=== PATIENT | female | born 1960 | race Caucasian/White ===

== ENCOUNTER 2018-06-02 06:24 | Day surgery (SDC) | payer OTHER ==
[2018-06-01 15:20] VITALS: BMI 28.1
[2018-06-02] MEDS ORDERED: DEXAMETHASONE SOD PHOSPHATE/PF 10 MG/ML SDV ONE (07:12)
[2018-06-02] MEDS ORDERED: ROPIVACAINE HCL 0.5% 30ML VIAL ONE (07:12)
[2018-06-02] MEDS ORDERED: MIDAZOLAM HCL 2 MG/2 ML SINGLE DOSE VIAL ONE ×3 (07:13→08:01)
--- NOTE | 2018-06-02 07:58 | HP ---
Satellite [facility] - Chief Complaint Chief Complaint: right shoulder pain - Past Medical History Allergies/Adverse Reactions: Allergies Allergy/AdvReac Type Severity Reaction Status Date / Time No Known Allergies Allergy Verified 06/01/18 15:20 - Current Medications Current Medications: Home Medications Medication Instructions Recorded Oxycodone HCl/Acetaminophen 1 - 2 tab PO Q6H #30 tab MDD 6 06/02/18 [Percocet 5-325 mg Tablet] Satellite Physical Exam - Physical Examination Vital Signs: Vital Signs Period Temp Pulse Resp BP Sys/Baez Pulse Ox Last 24 Hr 98 F 66 18 130/71 100 General Appearance: Well Nourished, Well Developed, Alert & Oriented x3 ENT: Clear Lung: Normal air movement Heart: Regular rate & rhythm Extremities: Other (right shoulder- + ttp, decr rom, + empty can, +neer, + wilkins, nvi MRI + rct) Neurological: Intact, Alert, Oriented Satellite Impression/Plan - Impression/Plan Impression: right shoulder rct Operative Procedure: right shoulder arthroscopy with RCLANDON Obrien Date to be Performed: 06/02/18
[2018-06-02] MEDS ORDERED: fentaNYL CITRATE 250 MCG/5 ML VIAL ONE (08:01)
[2018-06-02] MEDS ORDERED: ceFAZolin SODIUM 1 GM VIAL IVPB ONE (08:30)
[2018-06-02] MEDS ORDERED: ONDANSETRON 4 MG/2 ML VIAL IVPUSH PRN (08:50)
[2018-06-02] MEDS ORDERED: oxyCODONE HCL 5 MG TABLET PO PRN (08:50)
[2018-06-02] MEDS ORDERED: LACTATED RINGERS SOLUTION 1,000 ML IV SCH (09:00)
[2018-06-02] MEDS ORDERED: GLYCOPYRROLATE 0.2 MG/1 ML VIAL ONE (09:12)
[2018-06-02] MEDS ORDERED: NEOSTIGMINE METHYLSULFATE 0.5 MG/ML - 10 ML MDV ONE (09:12)
--- NOTE | 2018-06-02 09:19 | OP ---
Operative Note - Note: Operative Date: 06/02/18 ([facility]) Pre-Operative Diagnosis: right shoulder rct Operation: right shoulder arthroscopy with RCR, SAD Post-Operative Diagnosis: Same as Pre-op Surgeon: Rafael Lemus Landscape Artist: Johnnie Esposito Anesthesiologist/CHAIN MENDER: Isela Montoya Anesthesia: General, Local Specimens Removed: shavings Estimated Blood Loss (mls): 5 Operative Report Dictated: Yes
[2018-06-02] MEDS ORDERED: oxyCODONE HCL 5 MG TABLET ONE (09:49)
[2018-06-02] MEDS ORDERED: ONDANSETRON 4 MG/2 ML VIAL ONE (09:49)
[2018-06-02 13:18] VITALS: BP 133/78; PULSE 60; TEMP 97.8
--- NOTE | 2018-06-03 09:47 | OP ---
DATE OF OPERATION: 06/02/2018 PREOPERATIVE DIAGNOSIS: Right rotator cuff tear. POSTOPERATIVE DIAGNOSIS: Right rotator cuff tear and impingement. PROCEDURE: Arthroscopy, right shoulder, subacromial decompression, and a right rotator cuff repair. SURGICAL ATTENDING: Rafael Lemus MD INTERIOR DESIGN TEACHER: FRANCY Sahni ANESTHESIA: Regional and general. CLOSURE: Two SwiveLock anchors and a SutureTape for rotator cuff and 3-0 nylon for skin. ESTIMATED BLOOD LOSS: Negligible. COMPLICATIONS: None. CONDITION: To recovery room in stable condition. DESCRIPTION OF OPERATIVE PROCEDURE: Patient was taken to the operating room on June 02, 2018. Regional and general anesthesia were administered by the anesthesiologist. IV Kefzol was brought in prophylactically prior to the case. Right shoulder was prepped and draped in the usual sterile fashion with the patient in the beach-chair position. A diagnostic arthroscopy of the glenohumeral joint was performed. A posterior portal was made 2 fingerbreadths below the acromion with a 15 blade followed by a blunt trocar. A circumferential examination of the glenohumeral joint revealed the following: Intact glenoid and humeral head, articular cartilage, intact labrum circumferentially, intact biceps and biceps anchor, intact subscapularis to its insertion, no loose bodies in the axillary pouch. Looking superiorly, the rotator cuff was found to have a crescent tear. The rest of the rotator cuff was found to be intact. Fluid was drained from the shoulder and trocar was removed. The posterior trocar was redirected in the subacromial space. An accessory lateral portal was made with a 15 blade and blunt trocar. A bursectomy was performed using the shaver and the ArthroCare device. The coracoacromial ligament was identified and detached off the anterior acromion. It was visualized to drop inferiorly and was further debrided. An anterior acromioplasty was then performed using an acromionizer linda and debrided back to the appropriate level gaining sufficient height for the rotator cuff . Soft tissue then around the greater tuberosity was removed using the shaver exposing the crescent rotator cuff tear. The bed was cleaned of fibrous tissue exposing bleeding surface for re-implantation of the rotator cuff. Two FiberTape sutures were placed in horizontal mattress formation using a Numedeon self-retrieving suture passer. Each one of these sutures were placed through a SwiveLock anchor, which was malletted and screwed into the more lateral position on the greater tuberosity achieving excellent fixation. Direct visualization revealed that the rotator cuff had been pulsed back to its anatomical location, the greater tuberosity with no undue tension on the repair. The sutures were cut flush with the bone. Range of motion revealed excellent stability, the repair with excellent clearance with the acromion above. The shoulder was irrigated and drained of its fluid. The portals were closed with 3-0 nylon. Sterile pressure dressing followed by shoulder immobilizer was applied. Patient was awakened from anesthesia and transferred to the recovery room in stable condition. No complications. Estimated blood loss negligible. Larisa [id number]
--- NOTE | 2018-06-05 17:03 | PATH ---
Surgical Pathology Report Patient Name: CARLOS ECHEVERRIA [facility]. Rec. #: [id number] /Age/Gender: 1960 (Age: 58) / F Account: [id number] Location: [facility] SURGICAL Taken: 06/02/2018 Received: 06/02/2018 Reported: 06/05/2018 Physicians: Rafael Lemus M.D. Specimen(s) Received RIGHT SHOULDER SHAVINGS Clinical History Right shoulder tear Final Diagnosis RIGHT SHOULDER SHAVINGS: FRAGMENTS OF FIBROCARTILAGINOUS TISSUE AND SYNOVIAL TISSUE WITH DEGENERATIVE CHANGES. UNREMARKABLE SKELETAL MUSCLE FRAGMENTS. Electronically Signed Ross Farrar M.D. Gross Description Received in formalin, labeled "right shoulder shavings," is a 4.0 x 3.2 x 0.4 cm. aggregate of rodriguez-yellow soft tissue fragments. A veterans employment representative portion is submitted in one cassette. /06/02/201806/02/2018
== END 2018-06-02 12:00 | disposition home or self-care (01) ==
LOC: JASU-SURG 06:24
PROVIDERS: ATTEND Orthopaedic Surgery
PROC: 0RNJ4ZZ Release Right Shoulder Joint, Percutaneous Endoscopic Approach (ICD-10-PCS; principal; 2018-06-02 08:00)
PROC: 0LQ14ZZ Repair Right Shoulder Tendon, Percutaneous Endoscopic Approach (ICD-10-PCS; 2018-06-02 08:00)
DX: M75.101 Unspecified rotator cuff tear or rupture of right shoulder, not specified as traumatic (principal); M75.41 Impingement syndrome of right shoulder
CPT/HCPCS: 88304-TC; 94760

== ENCOUNTER 2018-11-01 08:33 | Day surgery (SDC) | payer OTHER ==
[2018-10-31 12:14] VITALS: BMI 31.3
--- NOTE | 2018-11-01 08:28 | HP ---
Satellite [facility] - Chief Complaint Chief Complaint: right hand pain, weakness, numbness, tingling History of Present Illness: right CTS History Source: Patient Limitations to Obtaining History: No Limitations - Past Medical History Allergies/Adverse Reactions: Allergies Allergy/AdvReac Type Severity Reaction Status Date / Time No Known Allergies Allergy Verified 06/01/18 15:20 - Current Medications Current Medications: Home Medications Medication Instructions Recorded NK [No Known Home Medication] 10/31/18 Satellite Physical Exam - Physical Examination General Appearance: Well Nourished ENT: Clear Lung: Clear to auscultation Heart: Regular rate & rhythm Breasts: Soft Abdomen: Soft Extremities: No edema Satellite Impression/Plan - Impression/Plan Impression: right CTS Operative Procedure: right CTR Date to be Performed: 11/01/18
[2018-11-01] MEDS ORDERED: MIDAZOLAM HCL 2 MG/2 ML SINGLE DOSE VIAL ONE (09:34)
[2018-11-01] MEDS ORDERED: BUPIVACAINE HCL/PF 0.5% (5MG/ML) 10 ML VIAL ONE (09:52)
[2018-11-01] MEDS ORDERED: LIDOCAINE HCL 1%, 10 MG/ML (20ML VIAL) ONE (09:52)
[2018-11-01] MEDS ORDERED: oxyCODONE HCL 5 MG TABLET PO PRN (10:04)
[2018-11-01] MEDS ORDERED: ONDANSETRON 4 MG/2 ML VIAL IVPUSH PRN (10:04)
[2018-11-01] MEDS ORDERED: ceFAZolin SODIUM 1 GM VIAL ONE (10:08)
[2018-11-01] MEDS ORDERED: ceFAZolin SODIUM 1 GM VIAL IVPB ONE (10:10)
[2018-11-01] MEDS ORDERED: LACTATED RINGERS SOLUTION 1,000 ML IV SCH (10:15)
[2018-11-01] MEDS ORDERED: LIDOCAINE HCL 1%, 10 MG/ML (20ML VIAL) PNB ONE (10:25)
[2018-11-01] MEDS ORDERED: PROPOFOL 20 ML ONE (10:27)
--- NOTE | 2018-11-01 10:47 | OP ---
Operative Note - Note: Operative Date: 11/01/18 Pre-Operative Diagnosis: right CTS Operation: right CTR, tenosynovectomy Post-Operative Diagnosis: Same as Pre-op Surgeon: Domenico Porter Anesthesiologist/LINEN ATTENDANT: Jason Moore Anesthesia: Local, MAC Specimens Removed: tenosynovium Estimated Blood Loss (mls): 0 Drains, Volume Out (mls): 0 Blood Volume Replaced (mls): 0 Fluid Volume Replaced (mls): 500 Operative Report Dictated: Yes
[2018-11-01 12:49] VITALS: BP 147/78; PULSE 84; TEMP 97.9
--- NOTE | 2018-11-02 02:37 | SPEC ---
DATE OF OPERATION: 11/01/2018 PREOPERATIVE DIAGNOSIS: Right carpal tunnel syndrome and tenosynovitis. POSTOPERATIVE DIAGNOSIS: Right carpal tunnel syndrome and tenosynovitis. PROCEDURE: Right carpal tunnel release and tenosynovectomy. SURGEON: Domenico Porter MD ASSISTANTS: None. ANESTHESIA: MAC, local injection with 12 mL of 0.5% Marcaine and 1% Lidocaine mix. ANESTHESIOLOGIST: Jason Moore CRNA DRAINS: None. COMPLICATIONS: None. SPECIMENS: Tenosynovium, right wrist. BLOOD LOSS: None. BLOOD GIVEN: None. FLUID REPLACEMENT: 500 mL of Plasmalyte. INDICATIONS: The patient is a 58-year-old female with preoperative diagnosis of severe right carpal tunnel syndrome. After understanding the potential risks, complications, alternatives and benefits of surgery versus nonsurgical treatment, the patient elected to undergo this procedure. DESCRIPTION OF PROCEDURE: The patient was brought to the operating room, peripheral IV placed and intravenous sedation was given. Two grams of intravenous Ancef was given. MAC anesthesia was induced. A tourniquet was applied to the right upper arm and the right upper extremity was prepped and draped in sterile fashion. The entire case was done under 3.8 loupe magnification. A marking pen was utilized to peter out a longitudinal incision in an already existing skin crease. Twenty mL of 0.5% Marcaine mixed with 1% Lidocaine was injected in and around the surgical incision. The right upper extremity was elevated, exsanguinated with an Esmarch bandage and the tourniquet inflated to 250 mmHg. A No. 15 scalpel blade was utilized to cut down through the skin. Subcutaneous hemostasis was achieved with the bipolar cautery. Dissection was done through the superficial palmar fascia. Self-retaining retractors were placed into the wound. Under direct visualization, the transverse carpal ligament was transected with a No. 15 scalpel blade, exposing the median nerve and the contents of the carpal tunnel. The distal and proximal extents of the release were completed with a Littler scissor and checked with irrigation and my small finger. They were seen to be complete. Limited dissection was done on the radial side of the median nerve and more extensive dissection was done on the ulnar side of the median nerve. The patients nerve was seen to be quite compressed by epineurium and therefore a limited epineurotomy was performed. A Ragnell retractor was used to gently retract the median nerve in a radial direction. The patient had a lot of tenosynovitis and therefore a tenosynovectomy was performed off all 9 flexor tendons. This was passed off the field as tenosynovium right wrist. The floor of the carpal tunnel was checked. There were no abnormal masses or ganglion cysts. The area was copiously irrigated and washed out and closure begun. Undyed 4-0 Vicryl was used to close the deep dermal layer. Final skin reapproximation was done with horizontal mattress 4-0 nylon sutures. The area was then washed and dried, covered with Xeroform, 4x4s, fluffs between the fingers, Webril and a 4-inch plaster roll was utilized to make a volar splint, which was then wrapped with Ruddy and Coban. The tourniquet was taken down after a total tourniquet time of 16 minutes. There were no complications during the case. The patient tolerated the procedure well and was brought to the ambulatory recovery room in stable condition. Larisa [id number]
--- NOTE | 2018-11-02 17:28 | PATH ---
Surgical Pathology Report Patient Name: CARLOS ECHEVERRIA [facility]. Rec. #: [id number] /Age/Gender: 1960 (Age: 58) / F Account: [id number] Location: [facility] SURGICAL Taken: 11/01/2018 Received: 11/01/2018 Reported: 11/02/2018 Physicians: Domenico Porter M.D. Specimen(s) Received RIGHT TENOSYNOVIUM Clinical History Carpal tunnel Final Diagnosis TENOSYNOVIUM, RIGHT, CARPAL TUNNEL RELEASE: BENIGN FIBROCONNECTIVE TISSUE. Electronically Signed Danii Hairston M.D. Gross Description Received in formalin labeled "right tenosynovium," is a 2.7 x 1.8 x 0.3 cm aggregate of rodriguez-yellow portions of soft tissue, consistent with tenosynovium. The specimen is submitted in toto in one cassette. /11/01/201811/01/2018
== END 2018-11-01 11:50 | disposition home or self-care (01) ==
LOC: JASU-SURG 08:33
PROVIDERS: ATTEND Orthopaedic Surgery
PROC: 01N50ZZ Release Median Nerve, Open Approach (ICD-10-PCS; principal; 2018-11-01 09:00)
DX: G56.01 Carpal tunnel syndrome, right upper limb (principal)
CPT/HCPCS: 88304-TC